=== PATIENT | male | born 1985 | race Caucasian/White ===

== ENCOUNTER 2018-12-16 15:35 | Emergency (ER) | payer MEDICAID ==
[~2018-12-16] VITALS: Ht 172.7 cm; Wt 68.2 kg
[2018-12-16] MEDS ORDERED: ALBU8HFA IH (15:41)
[2018-12-16 17:50] VITALS: BP 127/94
== END 2018-12-16 18:02 | disposition home or self-care (01) ==
LOC: EMS 15:37
DX: R76.11 Nonspecific reaction to tuberculin skin test without active tuberculosis (principal); F17.210 Nicotine dependence, cigarettes, uncomplicated; J45.909 Unspecified asthma, uncomplicated